=== PATIENT | male | born 1955 | race Caucasian/White ===

== ENCOUNTER 2022-01-21 08:02 | Day surgery (SDC) | payer MEDICARE, SELFPAY ==
[2022-01-21] VITALS (13 sets, daily range): BP systolic 90–173; BP diastolic 60–123
[~2022-01-21] VITALS: Ht 190.5 cm; Wt 112.4 kg
[2022-01-21] MEDS ORDERED: METO100T7 PO (08:24)
[2022-01-21] MEDS ORDERED: FLEC150T PO (08:24)
[2022-01-21] MEDS ORDERED: glycopyrrolate 0.2mg/ml inj IV ONE (08:30)
[2022-01-21] MEDS ORDERED: fentaNYL/PF 50MCG/1 ML 2ML syringe IV ONE (08:30)
[2022-01-21] MEDS ORDERED: normal saline 1000ml 1,000 ML IV SCH (08:30)
[2022-01-21] MEDS ORDERED: MIDAZolam 1mg/ml 10ml vial IV ONE (08:30)
[2022-01-21 09:11] LABS: ALBUMIN 3.4 G/DL (3.4-5.0); ANION GAP 11 (8-16); BLOOD UREA NITROGEN 11 MG/DL (7-18); BUN/CREATININE RATIO 9.2 (5.4-32.0); CALCIUM 8.6 MG/DL (8.5-10.1); CHLORIDE 107 MMOL/L (99-107); CREATININE 1.19 MG/DL (0.60-1.10); GLUCOSE 85 MG/DL (70-104); MAGNESIUM 1.9 MG/DL (1.5-2.4); POTASSIUM 3.7 MMOL/L (3.5-5.1); SODIUM 143 MMOL/L (135-145); eGFR 61 ML/MIN
[2022-01-21 09:12] LABS: BASOPHILS # (AUTO) 0.1 X10'3 (0-0.2); BASOPHILS % (AUTO) 0.9 % (0-1); EOSINOPHILS # (AUTO) 0.1 X10'3 (0-0.9); HEMATOCRIT 47.2 % (42.0-52.0); HEMOGLOBIN 15.8 g/dl (14.0-17.9); LYMPHOCYTES # (AUTO) 1.3 X10'3 (1.1-4.8); MEAN CORPUSCULAR HEMOGLOBIN 32.9 PG (27.0-31.0); MEAN CORPUSCULAR HGB CONC 33.3 g/dL (33.0-36.5); MEAN CORPUSCULAR VOLUME 98.7 FL (78-98); MEAN PLATELET VOLUME 8.4 FL (7.4-10.4); MONOCYTES # (AUTO) 0.8 X10'3 (0-0.9); MONOCYTES % (AUTO) 7.4 % (2-12); NEUTROPHILS # (AUTO) 9.1 X10'3 (1.8-7.7); NEUTROPHILS % (AUTO) 79.7 % (42-75); PLATELET COUNT 189 X10'3 (140-440); RED BLOOD COUNT 4.79 X10'6 (4.70-6.10); RED CELL DISTRIBUTION WIDTH 15.2 % (11.5-14.5); WHITE BLOOD COUNT 11.4 X10'3 (4.5-11.0)
[2022-01-21] MEDS ORDERED: DABI75CA3 PO (09:32)
--- NOTE | 2022-01-21 11:34 | NUR ---
RT to standby for [place] and cardioversion, PT placed on 7lpm NC during procedure, BS clear VS stable, post cardioversion titrate to 4lpm NC, BS clear, pt awake alert following commands, RN Evie to resume care and management of patient at this time. Addendum: 01/21/22 at 1136 by Malathi Villanueva RT Amended: Links added.
== END 2022-01-21 12:55 | disposition home or self-care (01) ==
LOC: SSTAY O 08:02
PROVIDERS: ATTEND Internal Medicine Cardiovascular Disease
DX: I48.0 Paroxysmal atrial fibrillation (principal); I48.4 Atypical atrial flutter
CPT/HCPCS: 36415; 80048; 83735; 85025; 85610; 92960; 93005; 93312; 94760; 94799; J2250; J3010; J3490; J7030; A4620

== ENCOUNTER 2025-05-10 09:39 | Outpatient (CLI) | payer MEDICARE, BC ==
[~2025-05-10 09:39] MED LIST: DABI75CA3 PO; FLEC150T PO; METO100T7 PO
--- NOTE | 2025-05-10 14:15 | RADIOLOGY REPORT ---
Examination: CT CTA AORTA DISECTION W/ IV CONTRAST CLINICAL HISTORY: DISSECTION OF DESCENDING THORACIC AORTA Comparison: None Technique: Using helical technique, CT data from the chest through the pelvis was obtained before during rapid IV contrast infusion. Multiphasic imaging was obtained including noncontrast, arterial and delayed phase. The examination was timed to the arterial system to generate a CT angiographic study. 3D images were generated at an independent work station. Dose reduction techniques included automated exposure control. Radiation Dose Information: CT Dose: CTDI volume is 16.6 mGy. 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 Type B aortic dissection beginning at approximately the T7 vertebral body level extending inferiorly into the proximal right and distal left common iliac artery. 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 Celiac artery, superior mesenteric artery and bilateral renal arteries and inferior mesenteric arteries are patent. Chest: Lungs/Pleura: Dependent atelectasis. No focal parenchymal process. No suspicious pulmonary nodules. No pleural effusion or focal pleural lesion. Axilla/Soft Tissue: No supraclavicular or axillary adenopathy. Regional soft tissues are within normal limits. Mediastinum:Visualized thyroid is normal. No pathologic mediastinal or hilar adenopathy. Esophagus is normal. Trachea and proximal bronchi are normal. Heart: Cardiomegaly. Coronary artery calcifications. Vascular calcifications of the aorta. Aortic valve replacement. Abdomen/Pelvis: Liver: The liver is normal in size and morphology,. No focal hepatic lesion. The portal veins are patent. Biliary System: Gallbladder: Normal Bile Ducts: No intrahepatic or extrahepatic biliary ductal dilation. Spleen: No splenomegaly or focal splenic lesion. Pancreas: No masses or ductal dilation. Adrenals: Normal. Urinary System: Kidneys and Ureters: Normal in size and location. No renal masses. No renal or ureteral calculi. No hydronephrosis or hydroureter. Bilateral renal cysts. Bladder: Normal. GI System: Stomach, small bowel, and large bowel are normal in caliber without wall thickening or dilation Appendix is normal. Lymph nodes: No lymphadenopathy. Peritoneal cavity and surface: No free fluid. No pneumoperitoneum. Soft Tissues: Normal. Reproductive Organs: Normal. Bones: No acute fracture or aggressive osseous lesion. Median sternotomy. Degenerative changes of the spine. 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 Type B aortic dissection beginning at approximately the T7 vertebral body level extending inferiorly into the proximal right and distal left common iliac artery. 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
== END 2025-05-10 23:59 | disposition home or self-care (01) ==
LOC: RAD 09:39
PROVIDERS: ATTEND Physician Assistant Surgical
DX: N28.1 Cyst of kidney, acquired (principal); J98.11 Atelectasis; I51.7 Cardiomegaly; I25.10 Atherosclerotic heart disease of native coronary artery without angina pectoris; I72.8 Aneurysm of other specified arteries; I70.0 Atherosclerosis of aorta; I71.012 Dissection of descending thoracic aorta; M47.815 Spondylosis without myelopathy or radiculopathy, thoracolumbar region; Z95.828 Presence of other vascular implants and grafts; Z95.2 Presence of prosthetic heart valve
CPT/HCPCS: 71275; 74174; Q9967